=== PATIENT | female | born 1965 | race Caucasian/White ===

== ENCOUNTER → 2016-12-01 | Outpatient (CLI) | payer BC ==
[2016-12-01 19:19] LABS: Basophils % (A) 0 %; CHCM 31.2; Eosinophils # (A) 0.2 k/uL (0-0.7); Eosinophils % (A) 2 %; HCT 45.8 % (34.0-46.0); HDW 2.38; HGB 14.2 gm/dL (11.4-16.0); Hypochromasia Slight; Luc # (Auto) 0.14; Luc % (Auto) 2; Lymphocytes # (A) 2.3 k/uL (1.0-4.8); Lymphocytes % (A) 31 %; MCH 29.9 pg (25.0-35.0); MCV 96.5 fL (80.0-100.0); Mean Platelet Volume 8.8; Monocytes # (A) 0.5 k/uL (0-1.0); Monocytes % (A) 7 %; Neutrophils # (A) 4.4 k/uL (1.3-7.7); Neutrophils % (A) 58 %; RBC 4.75 m/uL (3.80-5.40); RDW 13.5 % (11.5-15.5); WBC 7.6 k/uL (3.8-10.6); WBC (Perox) 7.64
[2016-12-01 19:52] LABS: ALT 33 U/L (9-52); AST 19 U/L (14-36); Alkaline Phosphatase 103 U/L (38-126); Anion Gap 11 mmol/L; Blood Urea Nitrogen 14 mg/dL (7-17); Calcium 9.5 mg/dL (8.4-10.2); Carbon Dioxide 21 mmol/L (22-30); Chloride 105 mmol/L (98-107); Cholesterol 242 mg/dL (<200); Glucose 84 mg/dL (74-99); HDL Cholesterol 66 mg/dL (40-60); Non-African American GFR(MDRD) >60 (>60 ml/min/1.73 sqM); Potassium 4.5 mmol/L (3.5-5.1); Sodium 137 mmol/L (137-145); Total Bilirubin 0.2 mg/dL (0.2-1.3); Total Protein 7.3 g/dL (6.3-8.2)
== END | disposition home or self-care (01) ==
LOC: MMGSC 13:41
PROVIDERS: ATTEND Family Medicine
DX: E78.5 Hyperlipidemia, unspecified (principal); I10 Essential (primary) hypertension; R07.9 Chest pain, unspecified
CPT/HCPCS: 36415; 80053; 80061; 84439; 84443; 84480; 85025

== ENCOUNTER 2017-01-26 15:28 | Emergency (ER) | payer BC ==
--- NOTE | 2017-01-26 17:04 | ED ---
ENT HPI - General Chief complaint: Dental/Oral Stated complaint: dental pain Time Seen by Provider: 01/26/17 16:38 Source: patient, RN notes reviewed Mode of arrival: ambulatory Limitations: no limitations - History of Present Illness Initial comments: This is a 51-year-old female who presents to the emergency department with chief complaint of dental pain. Patient states that she has been experiencing mild pain for the past month but it has gotten worse over the past couple of days. Patient states that she has not seen a dentist regularly due to insurance issues. She states that her pain is localized to the gums of the right side of her mouth, specifically upper right. She states that her cheek feels swollen. She has been experiencing shooting pains in the gumline. She denies trismus or radiation to jaw or neck. Denies fever, chills, chest pain, shortness of breath, abdominal pain, nausea or vomiting, constipation or diarrhea, dysuria or hematuria, numbness or tingling, headache or vision changes. - Related Data Previous Rx's Medication Instructions Recorded Penicillin V Potassium [Pen Vee K] 500 mg PO QID 10 Days tab 01/26/17 Allergies Allergy/AdvReac Type Severity Reaction Status Date / Time citalopram hydrobromide Allergy Anaphylaxis Verified 01/26/17 16:53 [From [facility]] Review of Systems ROS Statement: Those systems with pertinent positive or pertinent negative responses have been documented in the HPI. ROS Other: All systems not noted in ROS Statement are negative. Past Medical History Past Medical History: Fibromyalgia, Musculoskeletal Disorder Additional Past Medical History / Comment(s): back pain, kidney stone MS History of Any Multi-Drug Resistant Organisms: None Reported Past Surgical History: Adenoidectomy, Section, Hysterectomy, Tonsillectomy Additional Past Surgical History / Comment(s): Back stimulator and removal, carpal tunnel R hand, sinus surgery Past Anesthesia/Blood Transfusion Reactions: No Reported Reaction Past Psychological History: Anxiety Smoking Status: Current every day smoker Past Alcohol Use History: Rare Past Drug Use History: Marijuana General Exam - General Exam Comments Initial Comments: General: Awake and alert, well-developed; in no apparent distress. HEENT: Head atraumatic, normocephalic. Pupils are equal, round and reactive to light. Extraocular movements intact. Oropharynx moist without erythema or exudate. Dentition is poor and patient is missing multiple teeth. Upper and lower right gumlines are tender on palpation. No masses or area of fluctuance noted. Bilateral TMs are pearly without effusion. Neck: Supple. Normal ROM. Cardiovascular: Regular rate and rhythm. No murmurs, rubs or gallops. Chest symmetrical. Respiratory: Lungs clear to auscultation bilaterally. No wheezes, rales or rhonchi. Normal respiratory effort with no use of accessory muscles. Skin: [place], warm and dry without rashes or lesions. Neurological: Alert and oriented x3. CN II-XII grossly intact. Speech is fluent and answers are appropriate. No focal neuro deficits. Psychiatric: Normal mood and affect. No overt signs of depression or anxiety noted. Limitations: no limitations Course Vital Signs 01/26/17 15:33 Temperature 97.8 F Pulse Rate 104 H Respiratory 20 Rate Blood Pressure 127/84 O2 Sat by Pulse 98 Oximetry Medical Decision Making - Medical Decision Making This is a 51-year-old female who presents to the emergency department with chief complaint of dental pain. Patient states that her pain is localized to the right gumlines. There is no evidence of mass or area of fluctuance on physical examination. Patient has poor dentition and missing multiple teeth. She will be discharged home with a prescription for penicillin VK and pain medication. Strongly advised follow-up with a dentist. Patient is in agreement with plan and voices understanding. All questions answered. Disposition Clinical Impression: Pain, dental Disposition: HOME SELF-CARE Condition: Good Instructions: Toothache (ED) Additional Instructions: Please take medications as prescribed. Please follow up with primary care provider within 1-2 days. Return to emergency department if symptoms should worsen or any concerns arise. Prescriptions: Penicillin V Potassium [Pen Vee K] 500 mg PO QID 10 Days tab Referrals: Annette Garza MD [Primary Care Provider] - 1-2 days Time of Disposition: 17:07
[2017-01-26] MEDS ORDERED: ACET/COD 300 MG/30 MG STARTER PACK 6 TAB BTL PO STA (17:07)
[2017-01-26 17:24] VITALS: BP 126/75; PULSE 91; RESP 18; TEMP 97
== END 2017-01-26 17:23 | disposition home or self-care (01) ==
LOC: EC 15:28
DX: K08.89 Other specified disorders of teeth and supporting structures (principal); F17.200 Nicotine dependence, unspecified, uncomplicated; Z88.8 Allergy status to other drugs, medicaments and biological substances
CPT/HCPCS: 99282

== ENCOUNTER 2017-06-15 19:45 | Emergency (ER) | payer BC ==
[2017-06-15 20:13] VITALS: BP 124/78; PULSE 102; RESP 20; TEMP 98.3
--- NOTE | 2017-06-15 21:41 | ED ---
General Adult HPI - General Chief complaint: Skin/Abscess/Foreign Body Stated complaint: left foot swelling Time Seen by Provider: 06/15/17 21:36 Source: patient, RN notes reviewed Mode of arrival: ambulatory Limitations: no limitations - History of Present Illness Initial comments: Patient 51-year-old female presenting to the emergency room today with chief complaint of some swelling to left lower extremity over the last week. She does admit that the last few days seems to have been worse. She states she thought there was some redness to the lateral aspect of the foot and ankle area. She states she has felt discomfort in the back of the calf. She does admit that it's worse with dorsiflexion. She admits that she doesn't do anything all day. She states she has a history of MS that she is unable to work. Patient states worried about blood clot was her reason to come here to the emergency room tonight. States her mother was recently diagnosed with one. She denies any shortness of breath. She denies any injury or trauma to the area. Patient denies any recent fever, chills, cough, congestion, chest pain, shortness of breath, back pain, abdominal pain, nausea or vomiting - Related Data Home Medications Medication Instructions Recorded Confirmed Aspirin 325 mg PO DAILY PRN 06/15/17 06/15/17 Allergies Allergy/AdvReac Type Severity Reaction Status Date / Time citalopram hydrobromide Allergy Anaphylaxis Verified 06/15/17 22:07 [From [facility]] Review of Systems ROS Statement: Those systems with pertinent positive or pertinent negative responses have been documented in the HPI. ROS Other: All systems not noted in ROS Statement are negative. Past Medical History Past Medical History: Fibromyalgia, Musculoskeletal Disorder Additional Past Medical History / Comment(s): back pain, kidney stone, MS History of Any Multi-Drug Resistant Organisms: None Reported Past Surgical History: Adenoidectomy, Section, Hysterectomy, Tonsillectomy Additional Past Surgical History / Comment(s): Back stimulator and removal, carpal tunnel R hand, sinus surgery Past Anesthesia/Blood Transfusion Reactions: No Reported Reaction Past Psychological History: Anxiety Smoking Status: Current every day smoker Past Alcohol Use History: Rare Past Drug Use History: Marijuana General Exam - General Exam Comments Initial Comments: General: The patient is awake and alert, in no distress, and does not appear acutely ill. Eye: Pupils are equal, round and reactive to light, extra-ocular movements are intact. No nystagmus. There is normal conjunctiva bilaterally. No signs of icterus. Ears, nose, mouth and throat: There are moist mucous membranes and no oral lesions. Neck: The neck is supple, there is no tenderness or JVD. Cardiovascular: There is a regular rate and rhythm. No murmur, rub or gallop is appreciated. Respiratory: Lungs are clear to auscultation, respirations are non-labored, breath sounds are equal. No wheezes, stridor, rales, or rhonchi. Musculoskeletal: Normal ROM, no tenderness. Strength 5/5. Sensation intact. Pulses equal bilaterally 2+. Neurological: A&O x 3. CN II-XII intact, There are no obvious motor or sensory deficits. Coordination appears grossly intact. Speech is normal. Skin: Skin is warm and dry and no rashes or lesions are noted. No redness or erythema. Psychiatric: Cooperative, appropriate mood & affect, normal judgment. Limitations: no limitations Course Vital Signs 06/15/17 20:10 Temperature 98.3 F Pulse Rate 102 H Respiratory 20 Rate Blood Pressure 124/78 O2 Sat by Pulse 98 Oximetry Medical Decision Making - Medical Decision Making Patient's ultrasound negative for any evidence of DVT. Results were discussed with the patient. Advised follow-up family physician. Advised return for any other concerns. Disposition Clinical Impression: Leg pain Disposition: HOME SELF-CARE Condition: Good Instructions: Leg Pain (ED) Additional Instructions: Please use medication as discussed. Please follow-up with family doctor in the next 2 days. Please return to emergency room if the symptoms increase or worsen or for any other concerns. Is patient prescribed a controlled substance at discharge?: No Referrals: Annette Garza MD [Primary Care Provider] - 1-2 days Time of Disposition: 22:23
--- NOTE | 2017-06-15 22:20 | US ---
EXAMINATION TYPE: US venous doppler duplex LE LT DATE OF EXAM: 06/15/2017 9:58 PM COMPARISON: NONE CLINICAL HISTORY: Pain. SIDE PERFORMED: Left TECHNIQUE: The lower extremity deep venous system is examined utilizing real time linear array sonog gisele with graded compression, doppler sonography and color-flow sonography. VESSELS IMAGED: External Iliac Vein (EIV) Common Femoral Vein Deep Femoral Vein Greater Saphenous Vein * Femoral Vein Popliteal Vein Small Saphenous Vein * Proximal Calf Veins (* superficial vessels) Left Leg: Negative for DVT IMPRESSION: Normal exam. No evidence of deep venous thrombosis in the left leg.
== END 2017-06-15 22:38 | disposition home or self-care (01) ==
LOC: EC 19:45
DX: M79.605 Pain in left leg (principal); M79.89 Other specified soft tissue disorders; M79.7 Fibromyalgia; F17.200 Nicotine dependence, unspecified, uncomplicated; Z88.8 Allergy status to other drugs, medicaments and biological substances
CPT/HCPCS: 99283

== ENCOUNTER 2017-12-19 12:36 | Emergency (ER) | payer BC ==
[2017-12-19 12:53] VITALS: RESP 18; TEMP 98.1
[2017-12-19] MEDS ORDERED: MORPHINE SULFATE 4 MG/ML SYRINGE IV STA (12:55)
[2017-12-19] MEDS ORDERED: ONDANSETRON 4 MG/2 ML VIAL IVP STA (12:55)
[2017-12-19] MEDS ORDERED: SODIUM CHLORIDE 0.9% 500 ML 500 ML IV STA (12:55)
[2017-12-19] MEDS ORDERED: SODIUM CHLORIDE 0.9% 1,000 ML IV STA ×2 (12:55)
--- NOTE | 2017-12-19 13:02 | ED ---
Abdominal Pain HPI - General Chief Complaint: Abdominal Pain Stated Complaint: Abd Pain Time Seen by Provider: 12/19/17 12:55 Source: patient Mode of arrival: ambulatory Limitations: no limitations - History of Present Illness Initial Comments: This is a 52-year-old female the ER for evaluation of dog pain. Patient has significant nausea or vomiting but has chronic abdominal pain. She is following with her family doctor regarding his pain. No recent travel she no sick contacts no fevers. Patient is right upper quadrant, she does have again ultrasound scheduled gallbladder. No recent medication changes. Patient denies history of drinking or drug abuse MD Complaint: abdominal pain -: days(s) Location: RUQ Radiation: RUQ, back Migration to: RUQ Severity scale (1-10): 5 Quality: cramping Consistency: constant Improves With: medication Worsens With: eating Associated Symptoms: nausea - Related Data Home Medications Medication Instructions Recorded Confirmed Aspirin 975 mg PO TID PRN 06/15/17 12/19/17 Allergies Allergy/AdvReac Type Severity Reaction Status Date / Time citalopram hydrobromide Allergy Anaphylaxis Verified 12/19/17 13:41 [From [employer]] Review of Systems ROS Statement: Those systems with pertinent positive or pertinent negative responses have been documented in the HPI. ROS Other: All systems not noted in ROS Statement are negative. Past Medical History Past Medical History: Fibromyalgia, Musculoskeletal Disorder Additional Past Medical History / Comment(s): back pain, kidney stone, MS History of Any Multi-Drug Resistant Organisms: None Reported Past Surgical History: Adenoidectomy, Section, Hysterectomy, Tonsillectomy Additional Past Surgical History / Comment(s): Back stimulator and removal, carpal tunnel R hand, sinus surgery Past Anesthesia/Blood Transfusion Reactions: No Reported Reaction Past Psychological History: Anxiety Smoking Status: Current every day smoker Past Alcohol Use History: Rare Past Drug Use History: Marijuana General Exam Limitations: no limitations General appearance: alert, in no apparent distress Head exam: Present: atraumatic, normocephalic, normal inspection Eye exam: Present: normal appearance, PERRL, EOMI. Absent: scleral icterus, conjunctival injection, periorbital swelling ENT exam: Present: normal exam, mucous membranes moist Neck exam: Present: normal inspection. Absent: tenderness, meningismus, lymphadenopathy Respiratory exam: Present: normal lung sounds bilaterally. Absent: respiratory distress, wheezes, rales, rhonchi, stridor Cardiovascular Exam: Present: regular rate, normal rhythm, normal heart sounds. Absent: systolic murmur, diastolic murmur, rubs, gallop, clicks GI/Abdominal exam: Present: soft, normal bowel sounds. Absent: distended, tenderness, guarding, rebound, rigid Extremities exam: Present: normal inspection, full ROM, normal capillary refill. Absent: tenderness, pedal edema, joint swelling, calf tenderness Back exam: Present: normal inspection Neurological exam: Present: alert, oriented X3, CN II-XII intact Psychiatric exam: Present: normal affect, normal mood Skin exam: Present: warm, dry, intact, normal color. Absent: rash Course Vital Signs 12/19/17 12/19/17 12/19/17 12:50 13:30 14:30 Temperature 98.1 F Pulse Rate 120 H 99 97 Respiratory 18 18 Rate Blood Pressure 162/105 155/115 142/85 O2 Sat by Pulse 97 96 97 Oximetry - Reevaluation(s) Reevaluation #1: 12/19/17 15:55 Record is reviewed Pain is resolved. Medical Decision Making - Medical Decision Making 52 female the ER for abdominal pain, likely biliary colic versus hepatic steatosis versus need for pain medication. Patient will follow-up with primary care versus GI versus general surgery regarding further evaluation of this pain - Lab Data Result diagrams: 12/19/17 13:14 12/19/17 13:14 Lab Results 12/19/17 12/19/17 12/19/17 Range/Units 13:14 13:14 13:14 WBC 10.6 (3.8-10.6) k/uL RBC 4.25 (3.80-5.40) m/uL Hgb 14.8 (11.4-16.0) gm/dL Hct 44.0 (34.0-46.0) % MCV 103.6 H (80.0-100.0) fL MCH 34.8 (25.0-35.0) pg MCHC 33.6 (31.0-37.0) g/dL RDW 16.5 H (11.5-15.5) % Plt Count 295 (150-450) k/uL Neutrophils % 71 % Lymphocytes % 21 % Monocytes % 5 % Eosinophils % 1 % Basophils % 0 % Neutrophils # 7.5 (1.3-7.7) k/uL Lymphocytes # 2.2 (1.0-4.8) k/uL Monocytes # 0.5 (0-1.0) k/uL Eosinophils # 0.2 (0-0.7) k/uL Basophils # 0.0 (0-0.2) k/uL Anisocytosis Slight Macrocytosis Moderate Sodium 138 (137-145) mmol/L Potassium 4.6 (3.5-5.1) mmol/L Chloride 107 (98-107) mmol/L Carbon Dioxide 18 L (22-30) mmol/L Anion Gap 13 mmol/L BUN 16 (7-17) mg/dL Creatinine 0.67 (0.52-1.04) mg/dL Est GFR (CKD-EPI)AfAm >90 (>60 ml/min/1.73 sqM) Est GFR (CKD-EPI)NonAf >90 (>60 ml/min/1.73 sqM) Glucose 88 (74-99) mg/dL Plasma Lactic Acid Juanito (0.7-2.0) mmol/L Calcium 9.9 (8.4-10.2) mg/dL Total Bilirubin 0.8 (0.2-1.3) mg/dL AST 51 H (14-36) U/L ALT 77 H (9-52) U/L Alkaline Phosphatase 132 H (38-126) U/L Total Creatine Kinase 96 (30-135) U/L CK-MB (CK-2) 0.7 (0.0-2.4) ng/mL CK-MB (CK-2) Rel Index 0.7 Troponin I <0.012 (0.000-0.034) ng/mL Total Protein 7.9 (6.3-8.2) g/dL Albumin 4.5 (3.5-5.0) g/dL Amylase 48 (30-110) U/L Lipase 50 (23-300) U/L 12/19/17 Range/Units 13:14 WBC (3.8-10.6) k/uL RBC (3.80-5.40) m/uL Hgb (11.4-16.0) gm/dL Hct (34.0-46.0) % MCV (80.0-100.0) fL MCH (25.0-35.0) pg MCHC (31.0-37.0) g/dL RDW (11.5-15.5) % Plt Count (150-450) k/uL Neutrophils % % Lymphocytes % % Monocytes % % Eosinophils % % Basophils % % Neutrophils # (1.3-7.7) k/uL Lymphocytes # (1.0-4.8) k/uL Monocytes # (0-1.0) k/uL Eosinophils # (0-0.7) k/uL Basophils # (0-0.2) k/uL Anisocytosis Macrocytosis Sodium (137-145) mmol/L Potassium (3.5-5.1) mmol/L Chloride (98-107) mmol/L Carbon Dioxide (22-30) mmol/L Anion Gap mmol/L BUN (7-17) mg/dL Creatinine (0.52-1.04) mg/dL Est GFR (CKD-EPI)AfAm (>60 ml/min/1.73 sqM) Est GFR (CKD-EPI)NonAf (>60 ml/min/1.73 sqM) Glucose (74-99) mg/dL Plasma Lactic Acid Juanito 1.5 (0.7-2.0) mmol/L Calcium (8.4-10.2) mg/dL Total Bilirubin (0.2-1.3) mg/dL AST (14-36) U/L ALT (9-52) U/L Alkaline Phosphatase (38-126) U/L Total Creatine Kinase (30-135) U/L CK-MB (CK-2) (0.0-2.4) ng/mL CK-MB (CK-2) Rel Index Troponin I (0.000-0.034) ng/mL Total Protein (6.3-8.2) g/dL Albumin (3.5-5.0) g/dL Amylase (30-110) U/L Lipase (23-300) U/L - Radiology Data Radiology results: report reviewed (Ultrasound gallbladder hepatic steatosis), image reviewed Disposition Clinical Impression: Abdominal pain Disposition: HOME SELF-CARE Condition: Good Instructions: Abdominal Pain (ED) Is patient prescribed a controlled substance at d/c from ED?: No Referrals: Annette Garza MD [Primary Care Provider] - 1-2 days Christofer Steel MD [STAFF PHYSICIAN] - 1-2 days Gonzalo Caldwell MD [STAFF PHYSICIAN] - 1-2 days
[2017-12-19 14:09] LABS: Anisocytosis Slight; Basophils % (A) 0 %; Eosinophils # (A) 0.2 k/uL (0-0.7); Eosinophils % (A) 1 %; HGB 14.8 gm/dL (11.4-16.0); Lymphocytes # (A) 2.2 k/uL (1.0-4.8); Lymphocytes % (A) 21 %; MCH 34.8 pg (25.0-35.0); MCHC 33.6 g/dL (31.0-37.0); MCV 103.6 fL (80.0-100.0); Macrocytosis Moderate; Mean Platelet Volume 7.4; Monocytes # (A) 0.5 k/uL (0-1.0); Monocytes % (A) 5 %; Neutrophils # (A) 7.5 k/uL (1.3-7.7); Neutrophils % (A) 71 %; Platelet Count 295 k/uL (150-450); RBC 4.25 m/uL (3.80-5.40); RDW 16.5 % (11.5-15.5); WBC 10.6 k/uL (3.8-10.6)
[2017-12-19 14:17] LABS: ALT 77 U/L (9-52); AST 51 U/L (14-36); Albumin 4.5 g/dL (3.5-5.0); Alkaline Phosphatase 132 U/L (38-126); Amylase 48 U/L (30-110); Anion Gap 13 mmol/L; Blood Urea Nitrogen 16 mg/dL (7-17); Calcium 9.9 mg/dL (8.4-10.2); Carbon Dioxide 18 mmol/L (22-30); Chloride 107 mmol/L (98-107); Glucose 88 mg/dL (74-99); Lipase 50 U/L (23-300); Potassium 4.6 mmol/L (3.5-5.1); Sodium 138 mmol/L (137-145); Total Bilirubin 0.8 mg/dL (0.2-1.3); Total Protein 7.9 g/dL (6.3-8.2)
[2017-12-19 14:25] LABS: Creatine Kinase 96 U/L (30-135)
[2017-12-19 14:37] VITALS: PULSE 97
[2017-12-19 14:39] LABS: Creatine Kinase MB 0.7 ng/mL (0.0-2.4); Troponin I <0.012 ng/mL (0.000-0.034)
[2017-12-19] MEDS ORDERED: MORPHINE SULFATE 4 MG/ML SYRINGE IVP STA (15:42)
--- NOTE | 2017-12-19 15:49 | US ---
EXAMINATION TYPE: US gallbladder DATE OF EXAM: 12/19/2017 COMPARISON: NONE CLINICAL HISTORY: 52-year-old female Pain. TECHNIQUE: Multiple sonographic images of the right upper quadrant are obtained. FINDINGS: EXAM MEASUREMENTS: Liver Length: 14.3 cm Gallbladder Wall: 0.1 cm CBD: 0.5 cm CHD: 0.5 cm Right Kidney: 10.9 x 4.3 x 4.1 cm Pancreas: Appears echogenic in appearance. Liver: Echogenic and attenuating. This secondary to limits assessment for focal lesion. Gallbladder: wnl Evidence for sonographic Winkler's sign: neg CBD: wnl CHD: wnl Right Kidney: No hydronephrosis. IMPRESSION: Moderate to severe hepatic steatosis. Correlate with LFTs, lipid profile, and patient risk factors.
[2017-12-19 16:15] VITALS: BP 145/85
== END 2017-12-19 16:19 | disposition home or self-care (01) ==
LOC: EC 12:36
DX: R10.11 Right upper quadrant pain (principal); K76.0 Fatty (change of) liver, not elsewhere classified; G89.29 Other chronic pain; R11.2 Nausea with vomiting, unspecified; M54.9 Dorsalgia, unspecified; F17.200 Nicotine dependence, unspecified, uncomplicated; Z88.8 Allergy status to other drugs, medicaments and biological substances
CPT/HCPCS: 36415; 80053; 82150; 82550; 82553; 83605; 83690; 84484; 85025; 76705; 99284; 96374; 96375; 96376; 96361 ×3; J2270; J2405

== ENCOUNTER → 2017-12-23 | Outpatient (CLI) | payer BC ==
--- NOTE | 2017-12-23 16:15 | NM ---
EXAMINATION TYPE: NM hepatobiliary w EF DATE OF EXAM: 12/23/2017 COMPARISON: NONE HISTORY: Right upper quadrant pain TECHNIQUE: After the intravenous administration of 5.1 mCi Tc 99m Mebrofenin hepatobiliary scintigrap hy is performed. Immediate images post injection. FINDINGS: There is satisfactory initial accumulation of tracer by the liver. The gallbladder is visualized wit hin 6 minutes. The small bowel activity is noted within 24 minutes. At one hour 8 ounces of oral en sure plus is given to mimic CCK and gallbladder ejection fraction is calculated at 70 %, in the sonya l range. Therefore there is no scintigraphic evidence of cystic or common bile duct obstruction to s uggest acute cholecystitis or gallbladder dyskinesia. IMPRESSION: Exam is within normal limits.
== END | disposition home or self-care (01) ==
LOC: RADNMMAIN 12-22 12:58
PROVIDERS: ATTEND Emergency Medicine
DX: R10.11 Right upper quadrant pain (principal)
CPT/HCPCS: 78226; A9537

== ENCOUNTER → 2017-12-25 | Outpatient (CLI) | payer BC ==
--- NOTE | 2017-12-25 11:05 | US ---
EXAMINATION TYPE: US abdomen complete DATE OF EXAM: 12/25/2017 COMPARISON: RUQ US 6 days earlier CLINICAL HISTORY: R94.5 ELEV LFTS, R31.9 HEMATURIA; prior renal stones; RUQ pain mainly after meals EXAM MEASUREMENTS: Liver Length: 16.3 cm Gallbladder Wall: 0.2 cm CBD: 0.6 cm Spleen: 5.6 x 4.2 x 4.9cm Right Kidney: 10.8 x 6.0 x 4.3 cm Left Kidney: 10.4 x 5.5 x 5.5 cm Pancreas: mainly obscured by bowel gas Liver: hyperechoic suggests fatty liver Gallbladder: wnl Evidence for sonographic Winkler's sign: no CBD: at upper limits of normal Spleen: very small for size Right Kidney: hyperechoic parallel shadowing lines noted inferior pole suggests vessel wall calcific ation Left Kidney: possible microcalcifications noted on images # 87, 88. Upper IVC: wnl Abd Aorta: wnl IMPRESSION: 1. Mild hepatic steatosis. 2. Small nephrolithiasis difficult to exclude.
--- NOTE | 2017-12-25 11:25 | US ---
EXAMINATION TYPE: US pelvic complete DATE OF EXAM: 12/25/2017 COMPARISON: NONE CLINICAL HISTORY: R31.9 HEMATURIA. No pain, partial hysterectomy x 10 years ago-- still has both ovar ies. TECHNIQUE: Transabdominal (TA). Transabdominal sonographic images of the pelvis were acquired. Date of LMP: Hysterectomy EXAM MEASUREMENTS: Right Ovary: 2.4 x 1.3 x 1.5 cm Left Ovary: 3.0 x 1.9 x 1.7 cm 1. Uterus: Surgically absent 2. Endometrium: Surgically absent 3. Right Ovary: wnl 4. Left Ovary: wnl 5. Bilateral Adnexa: wnl 6. Posterior cul-de-sac: no free fluid IMPRESSION: 1. Hysterectomy changes without evidence for vaginal cuff mass. 2. No ovarian or adnexal masses seen.
== END | disposition home or self-care (01) ==
LOC: RADUSWWP 09:19
PROVIDERS: ATTEND Family Medicine
DX: K76.0 Fatty (change of) liver, not elsewhere classified (principal); R31.9 Hematuria, unspecified; Z90.710 Acquired absence of both cervix and uterus
CPT/HCPCS: 76700; 76856

== ENCOUNTER 2018-02-01 11:44 | Day surgery (SDC) | payer BC ==
[2018-01-29 14:37] VITALS: BMI 33.3
[~2018-02-01 11:44] MED LIST: LACTATED RINGERS 1,000 ML IV SCH; LIDOCAINE 1% 20 ML VIAL (10MG/ML) FOR IV START INTRADERMA PRN
[2018-02-01 12:49] VITALS: TEMP 97.4
[2018-02-01] MEDS ORDERED: PROPOFOL 10 MG/ML 20 ML VIAL IV ONE (13:21)
[2018-02-01] MEDS ORDERED: LIDOCAINE 1% INJ 10MG/ML (20 ML MDV) ONE (13:21)
[2018-02-01 14:02] VITALS: RESP 18
--- NOTE | 2018-02-01 14:12 | P.PCN ---
Date of Procedure: 02/01/18 Procedure(s) Performed: Procedure: 1. Esophagogastroduodenoscopy and biopsy. 2. Total colonoscopy. Preoperative diagnosis: Epigastric pain and change in bowel habits. Postoperative diagnosis: 1. Hiatal hernia and LA grade B/C distal esophagitis. 2. Mild gastritis and duodenitis. 3. Colonoscopy within normal limits. Preparation: HalfLytely prep. Sedation: Was provided by anesthesia. Brief clinical history: The patient is a 52-year-old female who is scheduled for this evaluation because of epigastric pain of few months duration. She also reports pain on the right side of the upper abdomen. In addition, she has been having issues with bloating in the upper abdomen and tendency for constipation. She had an upper endoscopy years back, had no prior colonoscopy. Procedure: With the patient on her left lateral decubitus position and after informed consent and adequate sedation, I passed the Olympus-GIF 160 video upper endoscope through the cricopharyngeus down the esophagus. GE junction was around 35-36 cm from the incisors and there was a 2 cm hiatal hernia and distal esophagitis consistent with LA grade B/C reflux esophagitis. No strictures or Pinon's esophagus. The endoscope was then passed into the stomach which was insufflated with air and inspected in detail including the retroflex view in the cardia. There was some mottling and erythema in the antrum but no ulcers or erosions. Pyloric channel did not show any ulcers. Duodenal bulb, post bulbar area and descending duodenum showed minimal erythema but no ulcers, erosions or bleeding. I obtained biopsies from the duodenum, antrum and esophagus then the endoscope was withdrawn and I proceeded with the colonoscopy. Perianal area did not show any fissures or fistulas. There were no masses felt on digital rectal examination. The Olympus CFH 190L video colonoscope was initially inserted in the rectum and advanced, however, I was not able to advance it safely in the sigmoid. I then exchanged the endoscope for the [facility] Q180 AL videocolonoscope which I was able to pass safely all the way to the cecum. The mucosa appeared healthy. There were no polyps or tumors or any obvious diverticular disease or other pathology. The patient tolerated the procedure well. Plan: The patient was reassured. Will await biopsy results. Discussed dietary measures and further plans can be made based on her course and biopsy results. I will be happy to see in the office of her symptoms persist. I would keep you updated on her progress.
[2018-02-01 14:30] VITALS: BP 122/74; PULSE 67
== END 2018-02-01 14:34 | disposition home or self-care (01) ==
LOC: ORWHC2ENDO 11:44
DX: K29.80 Duodenitis without bleeding (principal); K44.9 Diaphragmatic hernia without obstruction or gangrene; K29.50 Unspecified chronic gastritis without bleeding; K59.00 Constipation, unspecified; Z88.8 Allergy status to other drugs, medicaments and biological substances; K21.0 Gastro-esophageal reflux disease with esophagitis; I10 Essential (primary) hypertension; J45.909 Unspecified asthma, uncomplicated; F17.200 Nicotine dependence, unspecified, uncomplicated; M79.7 Fibromyalgia; G35 Multiple sclerosis; Z79.82 Long term (current) use of aspirin
CPT/HCPCS: 88305; 45378; 43239; J2001; J2704

== ENCOUNTER → 2018-06-12 | Outpatient (CLI) | payer BC ==
--- NOTE | 2018-06-12 12:31 | MR ---
EXAMINATION TYPE: MR brain wo/w con DATE OF EXAM: 06/12/2018 COMPARISON: 2014 HISTORY: dizziness, MS TECHNIQUE: Multiplanar, multisequence images of the brain and brainstem is performed without and with IV contras t, utilizing 7.5 mL intravenous Gadavist . FINDINGS: Diffusion weighted images demonstrate no evidence of a recent infarct or other diffusion ab normality. The ventricular system and cisternal spaces are normal in size and appearance. The brain volume is age appropriate. Midline structures demonstrate normal morphology. The craniocervical junction appears within normal limits. Post contrast images demonstrate no abnormal enhancement. The dural venous sinuses appear pa tent. Changes of mild chronic sinusitis. White matter: There is a 5 mm abnormal signal the white matter of the left periatrial region and a stable 5 mm lesi on in the right frontal superficial white matter. There are no enhancing lesions. No lesions perpendicular to ventricular system. No callosal lesions. IMPRESSION: 1. Stable nonspecific white matter changes can be seen with migraine headaches, hypertension. Demyeli nating process or remote microvascular ischemia not excluded.
== END | disposition home or self-care (01) ==
LOC: RADMRIMAIN 10:34
PROVIDERS: ATTEND Psychiatry & Neurology Neurology
DX: R90.89 Other abnormal findings on diagnostic imaging of central nervous system (principal); R93.0 Abnormal findings on diagnostic imaging of skull and head, not elsewhere classified
CPT/HCPCS: 70553; A9585

== ENCOUNTER → 2018-07-02 | Outpatient (CLI) | payer BC ==
--- NOTE | 2018-07-02 12:56 | MR ---
EXAMINATION TYPE: MR lumbar spine wo con DATE OF EXAM: 07/02/2018 12:51 PM COMPARISON: NONE HISTORY: Back pain Multiplanar, MultiSpin echo imaging of the lumbar spine was performed. L1-L2: Normal disc appearance without desiccation. No herniation, protrusion or disc bulging. No ca nal stenosis is present. Foramina are patent bilaterally. L2-L3: Normal disc appearance without desiccation. No herniation, protrusion or disc bulging. No ca nal stenosis is present. Foramina are patent bilaterally. L3-L4: Normal disc appearance without desiccation. No herniation, protrusion or disc bulging. No ca nal stenosis is present. Foramina are patent bilaterally. L4-L5: There is mild disc desiccation. Posterocentral disc bulge with mild effacement ventral thecal sac. No evidence for disc herniation or protrusion. No central stenosis or foraminal encroachment. L5-S1: There is mild disc desiccation. Posterocentral disc bulge with mild effacement ventral thecal sac. No evidence for disc herniation or protrusion. No central stenosis or foraminal encroachment. Lumbar segments are intact. No paraspinal masses are identified. Conus medullaris has a normal appe arance. IMPRESSION: 1. Degenerative disc disease and disc bulging at L4-5 and L5-S1.
== END | disposition home or self-care (01) ==
LOC: RADMRIMAIN 12:16
PROVIDERS: ATTEND Psychiatry & Neurology Neurology
DX: M51.26 Other intervertebral disc displacement, lumbar region (principal); M51.27 Other intervertebral disc displacement, lumbosacral region; M51.36 Other intervertebral disc degeneration, lumbar region; M51.37 Other intervertebral disc degeneration, lumbosacral region
CPT/HCPCS: 72148

== ENCOUNTER 2018-07-12 09:36 | Day surgery (SDC) | payer BC ==
[2018-07-09 12:46] VITALS: BMI 29.9
[~2018-07-12 09:36] MED LIST changes: -LIDOCAINE 1% 20 ML VIAL (10MG/ML) FOR IV START INTRADERMA PRN
[2018-07-12 09:53] VITALS: RESP 18; TEMP 97.1
[2018-07-12] MEDS ORDERED: LIDOCAINE 1% 20 ML VIAL (10MG/ML) FOR IV START INTRADERMA ONE (10:09)
[2018-07-12] MEDS ORDERED: IV FLUID CONTINUATION 600 ML IV ONE (10:49)
--- NOTE | 2018-07-12 10:54 | P.PCN ---
Date of Procedure: 07/12/18 Description of Procedure: Procedure: Lumbar Puncture . Preoperative Diagnoses: Multiple sclerosis Postoperative Diagnosis: Multiple sclerosis Anesthesia: IV sedation with Versed and local Condition: stable. Complications: none. Description of the procedure: Patient in postanesthesia care unit in the upright position and monitors applied, the back prepped with chlorhexidine x 3, sterile technique, with sterile gloves, mask and surgical cap. Local infiltration of the skin with lidocaine 1% 2 mL, then 22-gauge quickie Needle advanced slowly paramedian at L4-5 interlaminar space, the cerebrospinal fluid was clear, and no heme no paresthesia, a total of 10 mL of clear cerebrospinal fluid collected in 4 different tubes, the needle removed, Band-Aid applied , patient tolerated the procedure well without any complications, and further management as per her neurologist
--- NOTE | 2018-07-12 10:55 | P.GSHP ---
History of Present Illness H&P Date: 07/12/18 52-year-old female presenting for lumbar puncture him a diagnostic. Ruling out multiple sclerosis Pulmonary: Clear to also patient bilateral Cardiovascular: Regular rate and rhythm no peripheral edema. Plan: Collect 10 ML's of cerebral spinal fluid and placement for test tubes and sent to pathology. Past Medical History Past Medical History: Asthma, Fibromyalgia, GERD/Reflux, Hypertension, Musculoskeletal Disorder, Neurologic Disorder, Renal Disease, Sleep Apnea/CPAP/BIPAP Additional Past Medical History / Comment(s): back pain, kidney stones, right kidney chronic disease,MS, supposed to use CPAP, fatty liver, hx. of frequent blood in urine & UTI's, History of Any Multi-Drug Resistant Organisms: None Reported Past Surgical History: Adenoidectomy, Section, Hysterectomy, Tonsillectomy Additional Past Surgical History / Comment(s): Back stimulator and removal, carpal tunnel R hand, sinus surgery Past Anesthesia/Blood Transfusion Reactions: Family History of Problems w/ Anesthesia Additional Past Anesthesia/Blood Transfusion Reaction / Comment(s): mom has had trouble waking from anesethesia Smoking Status: Current every day smoker - Past Family History Mother Family Medical History: No Reported History Medications and Allergies Home Medications Medication Instructions Recorded Confirmed Type Aspirin 650 mg PO BID PRN 06/15/17 07/12/18 History Omeprazole [PriLOSEC] 20 mg PO AC-[id number] 07/09/18 07/12/18 History amLODIPine [Norvasc] 5 mg PO DAILY 07/09/18 07/12/18 History traZODone HCL 50 mg PO HS 07/09/18 07/12/18 History Allergies Allergy/AdvReac Type Severity Reaction Status Date / Time citalopram hydrobromide Allergy Anaphylaxis Verified 07/12/18 09:49 [From Celexa] Surgical - Exam Vital Signs Temp Pulse Resp BP Pulse Ox 97.1 F L 97 18 132/63 96 07/12/18 09:51 07/12/18 09:51 07/12/18 09:51 07/12/18 09:51 07/12/18 09:51
[2018-07-12 11:28] LABS: T4, Free (Free Thyroxine) 0.9 ng/dL (0.78-2.19)
[2018-07-12 11:29] LABS: Glucose,CSF 57 mg/dL (40-70); Total Protein,CSF 61 mg/dL (12-60)
[2018-07-12 11:58] VITALS: BP 118/70; PULSE 88
[2018-07-12 12:32] LABS: Appearance,CSF Clear; CSF Tube Number 4; Nucleated Cells, CSF 0 u/L (0-5); Red Blood Cell,CSF 0 u/L (0-10)
[2018-07-12 16:52] LABS: Rheumatoid Factor <4 IU/mL (0-15)
[2018-07-12 18:39] LABS: RNP 0.2 AI
[2018-07-12 20:38] LABS: DNA Double-Stranded Negative (NEGATIVE)
[2018-07-13 11:19] LABS: VDRL, Qualitative CSF Nonreactive (Nonreactive)
[2018-07-13 11:20] LABS: APTT 33 Sec(s) (<43); Dilute Russell Viper Venom 36 Sec(s) (<44)
[2018-07-13 11:40] LABS: IgG - CSF 3.1 mg/dL (0.0 - 3.4); IgG Synthesis Rate 1.07 mg/day (0.00 - 3.00); IgG/Albumin Index (CSF) 0.62 (0.00 - 0.77); Immunoglobulin G 873 mg/dL (700 - 1600)
[2018-07-13 13:01] LABS: Lyme IgG/IgM 0.03 Index
== END 2018-07-12 11:49 | disposition home or self-care (01) ==
LOC: ORPAIN 09:36
PROVIDERS: ATTEND Anesthesiology
DX: G35 Multiple sclerosis (principal); J45.909 Unspecified asthma, uncomplicated; M79.7 Fibromyalgia; K21.9 Gastro-esophageal reflux disease without esophagitis; I10 Essential (primary) hypertension; N28.9 Disorder of kidney and ureter, unspecified; G47.30 Sleep apnea, unspecified; Z87.440 Personal history of urinary (tract) infections; Z79.899 Other long term (current) drug therapy; Z88.8 Allergy status to other drugs, medicaments and biological substances; F17.200 Nicotine dependence, unspecified, uncomplicated
CPT/HCPCS: 86592; 86235 ×3; 84439; 88108; 84157; 82945; 82040; 82042; 82784; 83916; 83873; 84443; 84450; 84460; 85730; 86431; 85613; 89050; 86618; 86780; 86038; 86225; 87801; 62270; J2250

== ENCOUNTER 2021-09-08 20:20 | Inpatient (IN) | payer BC, MEDICAID, OTHER ==
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
[2021-09-08] MEDS ORDERED: LORazepam 1 MG TAB PO STA (21:32)
[2021-09-09] MEDS ORDERED: MAG HYDROX/AL HYDROX/SIMETH 30 ML CUP PO PRN (01:07)
[2021-09-09] MEDS ORDERED: LORazepam 1 MG TAB PO PRN (01:07)
[2021-09-09] MEDS ORDERED: ACETAMINOPHEN TAB 325 MG TAB PO PRN (01:07)
[2021-09-09] MEDS ORDERED: HALOPERIDOL LACTATE 5 MG/ML 1 ML VIAL IM PRN (01:07)
[2021-09-09] MEDS ORDERED: MAGNESIUM HYDROXIDE 2,400 MG/10 ML CUP PO PRN (01:07)
[2021-09-09] MEDS ORDERED: LORazepam 2 MG/ML INJ IM PRN (01:12)
[2021-09-09] MEDS ORDERED: haloperidoL 5 MG TAB PO PRN (01:13)
[2021-09-09] MEDS: NICOTINE 14MG/24HR PATCH TRANSDERM SCH (09:30)
[2021-09-09] MEDS ORDERED: OLANZapine 5 MG TAB PO PRN (16:21)
[2021-09-09] MEDS: OLANZapine 5 MG TAB PO SCH ×2 (16:41→20:58)
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
[2021-09-09 20:40] LABS: Appearance,Urine Clear (Clear); Bacteria,Urine Rare /hpf; Bilirubin,Urine Negative (Negative); Blood,Urine Small (Negative); Color,Urine Light Yellow; Glucose,Urine (UA) Negative (Negative); Ketones,Urine 1+ (Negative); Leukocyte Esterase,Urine Negative (Negative); Mucus,Urine Rare /hpf; Nitrite,Urine Negative (Negative); Protein,Urine Negative (Negative); RBC,Urine 2 /hpf (0-5); Specific Gravity,Urine 1.009 (1.001-1.035); Squamous Epithelial Cell,Urine 1 /hpf (0-4); Urobilinogen,Urine <2.0 mg/dL (<2.0)
[2021-09-09 20:42] LABS: Amphetamine Screen,Urine Not Detected (NotDetected); Barbiturate Screen,Urine Not Detected (NotDetected); Benzodiazepines Screen,Urine Detected (NotDetected); Cocaine Screen,Urine Not Detected (NotDetected); Methadone Screen, Urine Not Detected (NotDetected); Opiate Screen,Urine Not Detected (NotDetected); Oxycodone Screen, Urine Not Detected (NotDetected); Phencyclidine Screen,Urine Not Detected (NotDetected); Tricyclic Antidepressant,Urine Not Detected (NotDetected); Urn Cannabinoid Scrn Detected (NotDetected)
[2021-09-10] MEDS: NICOTINE 14MG/24HR PATCH TRANSDERM SCH (08:54)
[2021-09-10] MEDS: OLANZapine 5 MG TAB PO SCH (08:54)
[2021-09-10 09:49] LABS: Basophils # (A) 0.1 k/uL (0-0.2); Basophils % (A) 1 %; Eosinophils # (A) 0.2 k/uL (0-0.7); Eosinophils % (A) 2 %; HCT 41.9 % (34.0-46.0); Lymphocytes # (A) 2.9 k/uL (1.0-4.8); Lymphocytes % (A) 24 %; MCH 33.2 pg (25.0-35.0); MCHC 33.5 g/dL (31.0-37.0); MCV 99.3 fL (80.0-100.0); Mean Platelet Volume 8.2; Monocytes # (A) 0.4 k/uL (0-1.0); Monocytes % (A) 3 %; Neutrophils # (A) 8.5 k/uL (1.3-7.7); Neutrophils % (A) 70 %; Platelet Count 290 k/uL (150-450); RBC 4.22 m/uL (3.80-5.40); RDW 13.4 % (11.5-15.5); WBC 12.2 k/uL (3.8-10.6)
[2021-09-10 09:59] LABS: ALT 99 U/L (4-34); AST 151 U/L (14-36); African American GFR (CKD) >90 (>60 ml/min/1.73 sqM); Albumin 4.3 g/dL (3.5-5.0); Alkaline Phosphatase 107 U/L (38-126); Anion Gap 11 mmol/L; Blood Urea Nitrogen 13 mg/dL (7-17); Calcium 9.3 mg/dL (8.4-10.2); Carbon Dioxide 23 mmol/L (22-30); Chloride 105 mmol/L (98-107); Glucose 126 mg/dL (74-99); Non-African American GFR(CKD) >90 (>60 ml/min/1.73 sqM); Potassium 4.1 mmol/L (3.5-5.1); Sodium 139 mmol/L (137-145); Total Bilirubin 1.1 mg/dL (0.2-1.3); Total Protein 7.5 g/dL (6.3-8.2)
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
[2021-09-10 15:58] LABS: Chol/HDL Ratio 5.69 Ratio
[2021-09-10] MEDS: VENLAFAXINE HCL ER 37.5 MG CAP PO SCH (16:04)
[2021-09-10] MEDS: hydrOXYzine pamoate 25 MG CAP PO PRN (18:24)
[2021-09-10] MEDS: traZODone HCL 50 MG TAB PO SCH (20:35)
[2021-09-11] MEDS: VENLAFAXINE HCL ER 37.5 MG CAP PO SCH (09:10)
[2021-09-11] MEDS: NICOTINE 14MG/24HR PATCH TRANSDERM SCH (09:10)
[2021-09-11] MEDS: hydrOXYzine pamoate 25 MG CAP PO PRN ×2 (12:03→17:46)
--- NOTE | 2021-09-11 13:24 | P.PN ---
Progress Note - Text Progress Note Date: 09/11/21 Interval History: Patient was seen lying in her bed today and was directable and agreeable to bruno aguilar with property underwriter in the office. Patient claims that she is doing a bit better today in terms of her mood however continues to state that her anxiety is "bad". She states that she has been trying to go to groups and participate as best she can. She was asking more medication questions. We spoke about increasing her Effexor which she is okay with. She states that she has not been crying as much as before and trying to "stay positive". She states that she is able to sleep fairly last night, has a fair appetite. At this time patient denies any suicidal or homical ideations, intent or plan. Patient denies any auditory, visual hallucinations and denies any paranoia or delusions. Patient denies any side effects from the medications and has been compliant with meds. Mental Status Exam: General Appearance: Patient appears to be overweight, improving appearance, stated age is alert, directable, and cooperative. Wearing glasses. Hospital gown. Behavior: Patient is calmly seated without any agitated behavior. Speech: Patient's speech is fluent and nonpressured. Mood/Affect: Mood is depressed and anxious, improving mildly, affect is congruent and constricted. Suicidality/Homicidality: Patient denies having any suicidal or homicidal ideation intent or plan. Perceptions: Patient denies any visual hallucinations and denies any auditory hallucinations Though content/process: There is no evidence of any delusional thought content and thought process is linear and goal-directed. Focus on her symptoms of anxiety. Memory and concentration: AOX3, grossly intact for the purposes of this session Judgment and insight: Improving mildly Assessment Major depressive disorder, without psychotic features Anxiety disorder unspecified Cannabis use disorder mild Nicotine dependence Plan: -Patient continues to meet criteria for inpatient psychiatric admission for symptom stabilization and safety. Patient has signed adult voluntary form and medication consent and was placed in patient's chart. -Medications: Increase Effexor 75 mg daily for mood/anxiety. trazodone 50 mg daily at bedtime for insomnia/mood. -When necessary Ativan and Haldol for agitation/aggression. -NRT - nicotine patch -SW on board for discharge planning. Encouraged the patient to participate in milieu. Likely discharge in 1-2 days back home.
--- NOTE | 2021-09-11 16:02 | P.CONS ---
History of Present Illness - Reason for Consult Consult date: 09/11/21 Medical management - Chief Complaint Depression - History of Present Illness History of present illness: 55-year-old female with past medical history significant for MS, dyslipidemia GE RD who hasn't been seen her primary care physician for years. Patient stated that seeing physician are not helpful for her. She's been using [facility]. Patient was alert oriented 3. She denies any chest pain or shortness of breath. Patient is a smoker she smokes one pack per day for over 30 years. She admitted to the psychiatric unit for depression with psychosis. Patient denies any shortness of breath or cough chest pain, nausea vomiting abdominal pain nausea vomiting diarrhea. Denies recent travel sick contacts. Review of system: All 14 review of systems evaluated and all negative except for above. Physical examination: General: non toxic, no distress, appears at stated age Derm: warm, dry Head: atraumatic, normocephalic, symmetric Eyes: EOMI, no lid lag, anicteric sclera. Xanthelesma Mouth: no lip lesion, mucus membranes moist Cardiovascular: S1S2 reg, no murmur, positive posterior tibial pulse bilateral, Lungs: CTA bilateral, no rhonchi, no rales , no accessory muscle use Abdominal: soft, nontender to palpation, no guarding, no appreciable organomegaly Ext: no gross muscle atrophy, no edema, no contractures Neuro: CN II-XI grossly intact, no focal neuro deficits Psych: Alert, oriented, appropriate affect Assessment and plan: #Major depression with psychosis psychosis -Management per psychiatry #Ongoing tobacco abuse -Patient was counseled regarding smoking cessation -Resume nicotine patch #Xanthelesma: #History of dyslipidemia -Patient noncompliant with medication. -Check fasting lipid panel #Cannabis use #GERD -Continue has been using [id number] Prilosec -Resume PPIs and hospita Past Medical History Past Medical History: Asthma, Fibromyalgia, GERD/Reflux, Hypertension, Musculoskeletal Disorder, Neurologic Disorder, Renal Disease, Sleep Apnea/CPAP/BIPAP Additional Past Medical History / Comment(s): back pain, kidney stones, MS, recent problems w/high BP-no medication yet, supposed to use CPAP, fatty liver, hx. of frequent blood in urine & UTI's, heartburn, wakes up choking sometimes, RUQ pain History of Any Multi-Drug Resistant Organisms: None Reported Past Surgical History: Adenoidectomy, Section, Hysterectomy, Tonsillec josue Additional Past Surgical History / Comment(s): Back stimulator and removal, carpal tunnel R hand, sinus surgery Past Anesthesia/Blood Transfusion Reactions: Family History of Problems w/ Anesthesia Additional Past Anesthesia/Blood Transfusion Reaction / Comm: mom has had trouble waking from anesethesia Smoking Status: Current every day smoker - Past Family History Mother Family Medical History: No Reported History Medications and Allergies Home Medications Medication Instructions Recorded Confirmed Type Aspirin EC [Ecotrin Low Dose] 324 mg PO DAILY PRN 09/08/21 09/08/21 History diphenhydrAMINE [Benadryl] 125 mg PO HS 09/08/21 09/08/21 History Omeprazole Magnesium [PriLOSEC OTC] 20 mg PO DAILY 09/09/21 09/09/21 History Allergies Allergy/AdvReac Type Severity Reaction Status Date / Time citalopram hydrobromide Allergy Anaphylaxis Verified 09/09/21 02:19 [From Celexa] Physical Exam Vitals: Vital Signs Temp Pulse Resp BP 09/11/21 06:39 97.5 F L 83 16 107/65 Results CBC & Chem 7: 09/10/21 09:11 09/10/21 09:11 Labs: Abnormal Lab Results - Last 24 Hours (Table) 09/10/21 Range/Units 09:11 Cholesterol 312.00 H (0.00-200.00) mg/dL LDL Cholesterol, Calc 231.0 H (0.0-131.0) mg/dL
[2021-09-11] MEDS: traZODone HCL 50 MG TAB PO SCH (19:40)
[2021-09-11 22:57] LABS: Chol/HDL Ratio 5.74 Ratio; LDL Cholesterol,Calculated 211.6 mg/dL (0.0-131.0)
[2021-09-12] MEDS: VENLAFAXINE HCL ER 75 MG CAP PO SCH (08:29)
[2021-09-12] MEDS: NICOTINE 14MG/24HR PATCH TRANSDERM SCH (08:29)
[2021-09-12] MEDS: PANTOPRAZOLE 40 MG TABLET PO SCH (08:29)
[2021-09-12] MEDS ORDERED: hydrOXYzine pamoate 25 MG CAP PO PRN (11:30)
--- NOTE | 2021-09-12 13:30 | P.PN ---
Progress Note - Text Progress Note Date: 09/12/21 Interval History: Patient was seen lying in her bed today and was directable and agreeable to bruon aguilar with gag writer in the office. Patient claims that she is doing a bit better today in terms of her mood. She claims that yesterday she got fairly anxious over different arguments and fights that the patients are having in the hospital. She states that she is doing a bit better today however states that the Vistaril did not help her much. She claims that she is able to sleep fairly throughout the night. She does claim that her mood has been gradually improving which she is positive about. She is asking about potential discharge tomorrow. She states she is going to groups and participating as best she can. has a fair appetite. At this time patient denies any suicidal or homical ideations, intent or plan. Patient denies any auditory, visual hallucinations and denies any paranoia or delusions. Patient denies any side effects from the medications and has been compliant with meds. Mental Status Exam: General Appearance: Patient appears to be overweight, improving appearance, stated age is alert, directable, and cooperative. Wearing glasses. Hospital gown. Behavior: Patient is calmly seated without any agitated behavior Speech: Patient's speech is fluent and nonpressured. Mood/Affect: Mood is improving mildly, affect is congruent and constricted. Suicidality/Homicidality: Patient denies having any suicidal or homicidal ideation intent or plan. Perceptions: Patient denies any visual hallucinations and denies any auditory hallucinations Though content/process: There is no evidence of any delusional thought content and thought process is linear and goal-directed. Memory and concentration: AOX3, grossly intact for the purposes of this session Judgment and insight: Improving mildly Assessment: Major depressive disorder, without psychotic features Anxiety disorder unspecified Cannabis use disorder mild Nicotine dependence Plan: -Patient continues to meet criteria for inpatient psychiatric admission for symptom stabilization and safety. Patient has signed adult voluntary form and medication consent and was placed in patient's chart. -Medications: Effexor 75 mg daily for mood/anxiety, trazodone 50 mg daily at bedtime for insomnia/mood. -When necessary Ativan and Haldol for agitation/aggression -NRT - nicotine patch -SW on board for discharge planning. Encouraged the patient to participate in milieu. Likely discharge tomorrow back home
[2021-09-12] MEDS: traZODone HCL 50 MG TAB PO SCH (20:30)
[2021-09-13 07:02] VITALS: BP 133/79; PULSE 86; RESP 16; TEMP 97.9
[2021-09-13] MEDS: NICOTINE 14MG/24HR PATCH TRANSDERM SCH (08:17)
[2021-09-13] MEDS: PANTOPRAZOLE 40 MG TABLET PO SCH (08:17)
[2021-09-13] MEDS: VENLAFAXINE HCL ER 75 MG CAP PO SCH (08:17)
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
== END 2021-09-13 11:20 | disposition home or self-care (01) | DRG 881 ==
LOC: EC 20:20 → 3MHU 09-09 00:53
PROVIDERS: ADMIT Psychiatry & Neurology Psychiatry; ATTEND Psychiatry & Neurology Psychiatry
DX: F32.9 Major depressive disorder, single episode, unspecified (principal); F41.9 Anxiety disorder, unspecified; E78.5 Hyperlipidemia, unspecified; F12.23 Cannabis dependence with withdrawal; F17.210 Nicotine dependence, cigarettes, uncomplicated; Z71.6 Tobacco abuse counseling; Z71.89 Other specified counseling; G35 Multiple sclerosis; G47.00 Insomnia, unspecified; I10 Essential (primary) hypertension; J45.909 Unspecified asthma, uncomplicated; K21.9 Gastro-esophageal reflux disease without esophagitis; K76.0 Fatty (change of) liver, not elsewhere classified; M79.7 Fibromyalgia; Z91.14 Patient's other noncompliance with medication regimen; Z63.4 Disappearance and death of family member; Z79.82 Long term (current) use of aspirin; Z79.899 Other long term (current) drug therapy; Z87.442 Personal history of urinary calculi; Z91.410 Personal history of adult physical and sexual abuse; Z87.440 Personal history of urinary (tract) infections; Z20.822 Contact with and (suspected) exposure to COVID-19
CPT/HCPCS: 80053; 80061; 80306; 81001; 82075; 83036; 84443; 85025; 87635; 99284